=== PATIENT | female | born 1995 | race Caucasian/White ===

== ENCOUNTER 2020-05-16 10:44 | Emergency (ER) | payer OTHER, MEDICAID ==
[~2020-05-16] VITALS: Ht 175.3 cm; Wt 72.6 kg
[2020-05-16 10:45] VITALS: BP 92/75
--- NOTE | 2020-05-16 11:03 | NUR ---
Patient ambulated to bed 9. RN evaluating the patient at bedside.
--- NOTE | 2020-05-16 11:05 | NUR ---
2 CAREGIVERS AT BEDSIDE
--- NOTE | 2020-05-16 11:10 | NUR ---
24 Y/O FEMALE BIB CAREGIVER C/O ABD PAIN LLQ AND RLQ PAIN X 5 DAYS. PATIENT LIMITED ON VERBAL COMMUNICATION, PER CAREGIVERS PT SCREAMS UPON TOUCHING ABDOMEN, CANNOT LIE FLAT ON STOMACH, GRIMMACES, IS VISUALLY UNCOMFORTABLE. T GIVEN RX TYNENOL PRN WHEN PAIN BEGAN, WITH MINIMAL RELIEF. CAREGIVERS STATE PRESENCE OF NAUSEA/VOMITING AND FEVER/CHILLS. DENY CONSTIPATION, LAST BM 05/14/20. AO2, BREATHING EVEN AND UNLABORED, SKIN WARM AND DRY. BED IN LOWEST POSITION, LOCKED, X1 SIDERAIL UP. CAREGIVERS AT BEDSIDE PMH: AUTISTISM, HEMORRHOIDS NKA
--- NOTE | 2020-05-16 11:10 | NUR ---
CAREGIVERS STATE PRESENCE OF BLOOD IN STOOL
[2020-05-16] MEDS ORDERED: SIMETHICONE 40 MG/0.6 ML PO ONE (11:15)
[2020-05-16] MEDS ORDERED: ONDANSETRON 4 MG/2 ML VIAL IVP ONE (11:15)
[2020-05-16] MEDS ORDERED: FAMOTIDINE 20 MG/2 ML VIAL IVP ONE (11:15)
[2020-05-16] MEDS ORDERED: NACL 0.9% 1,000 ML IV SCH (11:15)
[2020-05-16] MEDS ORDERED: DICYCLOMINE 10 MG CAP PO ONE (11:15)
[2020-05-16] MEDS ORDERED: KETOROLAC 30 MG/ML VIAL IVP ONE (11:15)
--- NOTE | 2020-05-16 11:27 | NUR ---
Dr. Figueredo is evaluating the patient at bedside.
[2020-05-16 11:38] LABS: BASOPHILS % (AUTO) 0.3 % (0.0-2.0); EOSINOPHILS # (AUTO) 0.1 K/uL (0-0.4); EOSINOPHILS % (AUTO) 1.2 % (0.0-4.0); HEMATOCRIT 28.6 % (36-48); HEMOGLOBIN 9.1 g/dL (12.0-16.0); LYMPHOCYTES # (AUTO) 1.3 K/uL (2.5-16.5); LYMPHOCYTES % (AUTO) 22.2 % (20.5-51.1); MEAN CORPUSCULAR HEMOGLOBIN 27 pg (27-31); MEAN CORPUSCULAR HGB CONC 32 g/dL (33-37); MEAN CORPUSCULAR VOLUME 85.7 fL (80-94); MONOCYTES # (AUTO) 0.5 K/uL (0.8-1.0); MONOCYTES % (AUTO) 8.6 % (1.7-9.3); NEUTROPHILS % (AUTO) 67.7 % (42.2-75.2); PLATELET COUNT (AUTO) 204 K/uL (140-450); RED BLOOD CELL COUNT(AUTO) 3.33 MIL/uL (4.20-5.40); RED CELL DISTRIBUTION WIDTH 19.5 % (11.6-13.7); WHITE BLOOD COUNT (AUTO) 5.9 K/uL (4.8-10.8)
--- NOTE | 2020-05-16 11:43 | NUR ---
PT TAKEN TO CT VIA GURNEY. ACCOMPANIED BY 2 CAREGIVERS
[2020-05-16 11:52] LABS: ALBUMIN 2.6 g/dL (3.4-5.0); ANION GAP 12.4 (8-16); CARBON DIOXIDE 24.3 mmol/L (21-32); CREATININE 0.9 mg/dL (0.6-1.3); POTASSIUM 3.7 mmol/L (3.5-5.1); TOTAL BILIRUBIN 0.2 mg/dL (0.0-1.0)
--- NOTE | 2020-05-16 11:52 | NUR ---
Patient returned from CT scan. RN reevaluating the patient at bedside.
[2020-05-16] MEDS ORDERED: TRAM50TA3 PO (12:44)
[2020-05-16] MEDS ORDERED: SIME125T14 PO (12:45)
--- NOTE | 2020-05-16 12:56 | NUR ---
Patient discharged with v/s stable. Written and verbal after care instructions ABOUT MESENTERIC ADENITIS AND ABDOMINAL BLOATING given and explained. Patient alert, oriented and verbalized understanding of instructions. Ambulatory with by caregiver. All questions addressed prior to discharge. ID band removed. Patient advised to follow up with PMD. Rx of SIMETHICONE AND TRAMADOL given. Patient educated on indication of medication including possible reaction and side effects. Opportunity to ask questions provided and answered.
[2020-05-16 13:00] VITALS: BP 92/75
== END 2020-05-16 12:56 | disposition home or self-care (01) ==
LOC: MED 10:44
DX: K52.9 Noninfective gastroenteritis and colitis, unspecified (principal); I88.0 Nonspecific mesenteric lymphadenitis; F88 Other disorders of psychological development
CPT/HCPCS: 36415; 74176; 80053; 83690; 84703; 85025; 96361; 96374; 96375; 99284; J1885; J2405; J3490; J7030

== ENCOUNTER 2021-10-05 09:28 | Inpatient (IN) | payer OTHER, MEDICAID ==
[~2021-10-05] VITALS: Ht 177.8 cm; Wt 67.6 kg
[~2021-10-05 09:28] MED LIST: SIME125T14 PO; TRAM50TA3 PO
[2021-10-05 09:40] VITALS: BP 115/89
--- NOTE | 2021-10-05 09:48 | NUR ---
PT W/C ASSISTED TO BED 02.
--- NOTE | 2021-10-05 09:50 | NUR ---
WHEELCHAIRED INTO ED ACCOMPANIED BY CAREGIVER C/O B/L HIP PAIN, MORE PROMINENT ON RIGHT SIDE S/P FALL D/T BEHAVIORAL. DENIES TRAUMA TO HEAD.
--- NOTE | 2021-10-05 11:01 | NUR ---
BLOOD COLLECTED. UNABLE TO PROVIDE URINE AT THIS TIME. WILL TRY AGAIN LATER
[2021-10-05 11:03] LABS: BASOPHILS % (AUTO) 0.2 % (0.0-2.0); EOSINOPHILS % (AUTO) 0.3 % (0.0-4.0); HEMATOCRIT 28.1 % (36-48); HEMOGLOBIN 9.1 g/dL (12.0-16.0); LYMPHOCYTES % (AUTO) 6.9 % (20.5-51.1); MEAN CORPUSCULAR HEMOGLOBIN 28 pg (27-31); MEAN CORPUSCULAR HGB CONC 32 g/dL (33-37); MEAN CORPUSCULAR VOLUME 85.2 fL (80-94); MONOCYTES # (AUTO) 2.4 K/uL (0.8-1.0); NEUTROPHILS # (AUTO) 10.8 K/uL (1.8-7.7); NEUTROPHILS % (AUTO) 75.6 % (42.2-75.2); PLATELET COUNT (AUTO) 211 K/uL (140-450); RED BLOOD CELL COUNT(AUTO) 3.29 MIL/uL (4.20-5.40); RED CELL DISTRIBUTION WIDTH 18.9 % (11.6-13.7); WHITE BLOOD COUNT (AUTO) 14.3 K/uL (4.8-10.8)
[2021-10-05] MEDS ORDERED: NACL 0.9% 1,000 ML IV ONE (11:05)
--- NOTE | 2021-10-05 11:20 | NUR ---
XR AT BEDSIDE
[2021-10-05] MEDS ORDERED: MIDAZOLAM 2 MG/2 ML VIAL ONE (11:22)
[2021-10-05] MEDS ORDERED: diphenhydrAMINE 50 MG/ML VIAL ONE (11:23)
[2021-10-05] MEDS ORDERED: MIDAZOLAM 5 MG/5 ML VIAL IV ONE (11:25)
--- NOTE | 2021-10-05 11:30 | NUR ---
PT WENT FOR CT ACCOMPANIED BY RN WITH MONITOR AND O2 NC
[2021-10-05 11:31] LABS: APPEARANCE,URINE CLEAR (CLEAR); BILIRUBIN,URINE NEGATIVE (NEGATIVE); BLOOD, URINE NEGATIVE (NEGATIVE); COLOR,URINE YELLOW (YELLOW); LEUKOCYTE ESTERASE ,URINE NEGATIVE (NEGATIVE); NITRITE, URINE NEGATIVE (NEGATIVE); PH,URINE 7.5 (5.0-9.0); UGLUCOSE NEGATIVE (NEGATIVE)
[2021-10-05 11:40] LABS: BARBITURATE, URINE NEGATIVE ng/ml (NEG <=200); BENZODIAZEPINE, URINE POSITIVE ng/mL (NEG <=200)
[2021-10-05 11:41] LABS: CANNABINOID, URINE NEGATIVE ng/mL (NEG <=50); COCAINE, URINE NEGATIVE ng/mL (NEG <=300); OPIATE, URINE NEGATIVE ng/mL (NEG <=2000); PHENCYCLIDINE SCREEN,URINE NEGATIVE ng/mL (NEG <=25)
--- NOTE | 2021-10-05 11:41 | NUR ---
[facility] RETURNED PATIENT WAS CALM DURING CT.
--- NOTE | 2021-10-05 11:42 | NUR ---
PT BACK FROM CT
[2021-10-05 11:47] LABS: ACETAMINOPHEN < 0.5 ug/ml (10-30); ALBUMIN 2.3 g/dL (3.4-5.0); ANION GAP 15.9 (8-16); ASPARTATE AMINOTRANSFERASE 99 U/L (15-37); CARBON DIOXIDE 21.8 mmol/L (21-32); CHLORIDE 103 mmol/L (98-107); CREATININE 0.7 mg/dL (0.6-1.3); GFR ARICAN-AMERICAN 131 mL/min (>90); GLUCOSE 109 mg/dL (74-106); POTASSIUM 3.7 mmol/L (3.5-5.1); SODIUM SERUM 137 mmol/L (136-145); TOTAL BILIRUBIN 0.3 mg/dL (0.0-1.0); UREA NITROGEN, BLOOD 7 mg/dL (7-18)
[2021-10-05 12:05] LABS: SALICYLATE < 2.8 mg/dL (2.8-20.0)
--- NOTE | 2021-10-05 13:09 | NUR ---
CONTACT INFO FOR PT'S MOM [phone]
--- NOTE | 2021-10-05 13:43 | NUR ---
SPOKE WITH THONY THE TAP PULLER, WILL CALL BACK WITH CONFIRMATION ON ADMISSION
[2021-10-05] MEDS ORDERED: TEMA30CA23 PO (13:53)
[2021-10-05] MEDS ORDERED: DOCU-299 PO (13:53)
[2021-10-05] MEDS ORDERED: [UNRECOGNIZED DRUG - CODE] PO (13:53)
[2021-10-05] MEDS ORDERED: LORA-476 PO (13:53)
[2021-10-05] MEDS ORDERED: OLAN20TA1 PO (13:53)
[2021-10-05] MEDS ORDERED: DIVA500T1 PO (13:53)
[2021-10-05] MEDS ORDERED: ZIPR40CA39 PO (13:53)
[2021-10-05] MEDS ORDERED: TOPI50TA PO (13:53)
[2021-10-05] MEDS ORDERED: DIPH50CA69 PO (13:53)
[2021-10-05] MEDS ORDERED: [UNRECOGNIZED DRUG - CODE] PO (13:53)
[2021-10-05] MEDS ORDERED: FAMO-90 PO (13:53)
[2021-10-05] MEDS ORDERED: cefTRIAXone 1,000 MG VIAL ONE (15:06)
--- NOTE | 2021-10-05 15:47 | NUR ---
PT MOVED TO ER BED 4 FOR CLOSER OBSERVATION
[2021-10-05] MEDS ORDERED: ACETAMINOPHEN 325 MG TAB PO PRN (15:55)
[2021-10-05] MEDS ORDERED: POTASSIUM CHLORIDE 10 MEQ TABER PO PRN (15:55)
[2021-10-05] MEDS ORDERED: MAG SULF 2000 MG/WATER PREMIX 50 ML IV PRN (15:55)
[2021-10-05] MEDS ORDERED: KCL 20 MEQ/WATER INJ PREMIX 200 ML IV PRN (15:55)
[2021-10-05] MEDS ORDERED: MAGNESIUM OXIDE 400 MG TAB PO PRN (15:55)
[2021-10-05] MEDS ORDERED: MORPHINE SULFATE 4 MG/ML SYR IVP PRN (15:55)
[2021-10-05] MEDS ORDERED: HYDROcodone/APAP 5/325 MG 1 TAB TAB PO PRN (15:55)
[2021-10-05] MEDS ORDERED: ONDANSETRON 4 MG/2 ML VIAL IVP PRN (15:55)
[2021-10-05] MEDS ORDERED: LEVOFLOXACIN 500 MG/D5W PREMIX 100 ML IV ONE (16:56)
[2021-10-05] MEDS: LEVOFLOXACIN 500 MG/D5W PREMIX 100 ML IV SCH (16:59)
[2021-10-05] MEDS: NACL 0.9% 1,000 ML IV SCH (17:00)
--- NOTE | 2021-10-05 19:30 | NUR ---
REEIVED IN BED 4 WITH MOTHER AT BEDSIDE. IS RESTING QUIETLY AT PRESENT. RESPIRATIONS ARE REGULAR AND UNLABORED
--- NOTE | 2021-10-05 20:00 | NUR ---
PT HITS SELF IN HEAD. PROTECTIVE HELMET IN PLACE. DIAPER AND LINENS CHANGED. POSITIONED FOR COMFORT. MOM REMAINS AT BEDSIDE
--- NOTE | 2021-10-05 22:00 | NUR ---
REPOSITIONED FOR COMFORT
--- NOTE | 2021-10-06 | NUR ---
RESTING QUIETLY AT PRESENT. RESPIRATIONS ARE REGULAR AND UNLABORED
[2021-10-06] MEDS: metroNIDAZOLE 500 MG/NS PREMIX 100 ML IV SCH ×4 (03:10→21:10)
--- NOTE | 2021-10-06 04:00 | NUR ---
AWAKE, IS RESTLESS. REPOSITIONED FOR COMFORT
--- NOTE | 2021-10-06 06:15 | NUR ---
PT PULLED IV OUT. LINENS CHANGED
[2021-10-06] MEDS: NACL 0.9% 1,000 ML IV SCH ×2 (06:42→17:24)
--- NOTE | 2021-10-06 07:30 | NUR ---
REPORT RECEIVED FROM RYAN GARCIA, TRANSFER OF CARE AT THIS TIME. RECEIVED PT IN BED, SEZIURE PADS IN PLACE, HELMET IN PLACE, BED LOCKED AND LOWEST POSITION,NO IV ACCESS, PT TACHYCARDIC AT 125, ON MUSIC CATALOGUER
[2021-10-06 07:39] LABS: BASOPHILS % (AUTO) 0.3 % (0.0-2.0); EOSINOPHILS % (AUTO) 0.5 % (0.0-4.0); HEMATOCRIT 28.8 % (36-48); HEMOGLOBIN 9.2 g/dL (12.0-16.0); LYMPHOCYTES % (AUTO) 11.2 % (20.5-51.1); MEAN CORPUSCULAR HEMOGLOBIN 28 pg (27-31); MEAN CORPUSCULAR HGB CONC 32 g/dL (33-37); MEAN CORPUSCULAR VOLUME 87.5 fL (80-94); MONOCYTES # (AUTO) 1.2 K/uL (0.8-1.0); MONOCYTES % (AUTO) 12.9 % (1.7-9.3); NEUTROPHILS # (AUTO) 6.9 K/uL (1.8-7.7); NEUTROPHILS % (AUTO) 75.1 % (42.2-75.2); PLATELET COUNT (AUTO) 199 K/uL (140-450); RED BLOOD CELL COUNT(AUTO) 3.29 MIL/uL (4.20-5.40); RED CELL DISTRIBUTION WIDTH 19.2 % (11.6-13.7); WHITE BLOOD COUNT (AUTO) 9.2 K/uL (4.8-10.8)
[2021-10-06 08:28] LABS: ALBUMIN 2.1 g/dL (3.4-5.0); ANION GAP 16.2 (8-16); CARBON DIOXIDE 21.2 mmol/L (21-32); CREATININE 0.6 mg/dL (0.6-1.3); MAGNESIUM 1.7 mg/dL (1.8-2.4); POTASSIUM 3.4 mmol/L (3.5-5.1); TOTAL BILIRUBIN 0.4 mg/dL (0.0-1.0)
--- NOTE | 2021-10-06 08:58 | NUR ---
SPOKE TO DR [facility] REGARDING PT TACHYCARDIA AND RESTLESSNESS,RECEIVED VERBAL ORDER FOR SOFT RESTRAINTS FOR WRISTS AND ONE TIME DOSE OF ATIVAN IV 1MG, MADE AWARE OF RESTRAINT PROTOCOL
[2021-10-06] MEDS ORDERED: LORazepam 2 MG/ML VIAL IM/IVP PRN (09:00)
--- NOTE | 2021-10-06 10:14 | NUR ---
PT SHEETS, GOWN AND DIAPER CHANGED, KEPT CLEAN AND DRY
[2021-10-06] MEDS ORDERED: traMADol 50 MG TAB PO SCH (10:35)
[2021-10-06] MEDS: diazePAM 5 MG TAB PO PRN (12:49)
--- NOTE | 2021-10-06 13:30 | NUR ---
PT MOTHER LEFT BEDSIDE, PT NOTED TO BE HITTING HER HEAD WITH HELMET
--- NOTE | 2021-10-06 13:40 | NUR ---
PILLOW REPLACED, IV LINE HIDDEN TO PREVENT PT PULLING OUT LINE
--- NOTE | 2021-10-06 13:57 | NUR ---
DR ROSALES AT BEDSIDE FOR EVAL
--- NOTE | 2021-10-06 14:00 | NUR ---
PT ATTEMPTING TO PULL ON LINES, SCREAMING FOR MOTHER/FATHER, REORIENTED THAT MOTHER AND FATHER ARE NOT AT PT SIDE
--- NOTE | 2021-10-06 14:00 | NUR ---
DR ROSALES INFORMED THAT SOFT RESTRAINTS WERE NOT USED EARLIER BECAUSE PTS MOTHER WAS AT BEDSIDE AND WAS ABLE TO CALM HER DOWN. DR ROSALES ALSO NOTIFIED OF PATIENTS MEDICATION REGIMEN AT HOME SO IT CAN BE UPDATED. PATIENTS MOTHER WAS REQUESTING/ADVISING US TO RESTRAIN THE PATIENT WHEN SHE LEAVES SHE CAN BEGAN TO HIT HERSELF. DR ROSALES AT BEDSIDE, RECEIVED VERBAL ORDER AGAIN OF SOFT RESTRAINTS. ALSO INFORMED HIM OF PATIENTS ELEVATED HEART RATE AND ELEVATED RESPIRATIONS, NO NEW ORDERS RECEIVED.
--- NOTE | 2021-10-06 14:17 | NUR ---
PATIENT HAS BEEN SCREENED AND CATEGORIZED LOW NUTRITION RISK. PATIENT WILL BE SEEN WITHIN 7 DAYS OF ADMISSION. 10/12/[address]
--- NOTE | 2021-10-06 17:29 | NUR ---
PT FATHER AT BEDSIDE
[2021-10-06] MEDS: LEVOFLOXACIN 500 MG/D5W PREMIX 100 ML IV SCH (18:07)
--- NOTE | 2021-10-06 19:52 | NUR ---
Pt report given to EBONY ALVAREZ. Transfer of care at this time.
--- NOTE | 2021-10-06 20:20 | NUR ---
Patient will be admitted to [facility]. Admited to TELE. Will go to [id number]. Belongings list completed. Report to
[2021-10-06 20:30] VITALS: BP 121/85
--- NOTE | 2021-10-06 20:30 | NUR ---
RECEIVED REPORT FROM ER NURSE. PATIENT IS AWAKE, ALERT AND ORIENTED TO HER NAME. RE-ORIENTATION DONE TO TIME, PLACE AND DATE, RN NAME PROVIDED. NO S/X OF PAIN NOR DISCOMFORT. NO ACUTE RESPIRATORY DISTRESS NOTED. SKIN WARM AND DRY TO TOUCH. BED IN THE LOWEST AND LOCKED POSITION FOR SAFETY, CALL LIGHT WITHIN REACH. INCONTINENT OF URINE, PERINEAL CARE RENDERED.BILATERAL SOFT WRIST RESTRAINTS ON FOR SAFETY, CHECKED FOR CIRCULATION, NO SKIN INJURY, IVF INFUSING WELL ORDERED.
--- NOTE | 2021-10-06 21:00 | NUR ---
DUE MEDICATIONS GIVEN ORDERED, TOLERATED WELL, NO COUGHING NOTED. PROVIDED WATER.
[2021-10-06] MEDS: TEMAZEPAM 15 MG CAP PO SCH (21:10)
[2021-10-06] MEDS: DOCUSATE SODIUM 100 MG GELCAP PO SCH (21:10)
[2021-10-06] MEDS: DIVALPROEX 500 MG TABER PO SCH (21:10)
[2021-10-06] MEDS: TOPIRAMATE 100 MG TAB PO SCH (21:10)
--- NOTE | 2021-10-06 22:05 | NUR ---
BASIM, MOTHER CALLED, UPDATED ON PT. MOTHER PROVIDED INFO ON COVID VACCINATION AND MEDICAL HISTORY. Addendum: 10/07/21 at 0229 by Mi Simmons RN BASIM'S CELLPHONE NUMBER
[2021-10-07] VITALS: BP 119/79
--- NOTE | 2021-10-07 | NUR ---
RESTING COMFORTABLY IN BED. IVF INFUSING WELL ORDERED. CALL LIGHT IN REACH.
[2021-10-07 04:00] VITALS: BP 121/85
[2021-10-07] MEDS: NACL 0.9% 1,000 ML IV SCH ×2 (04:02→18:15)
[2021-10-07] MEDS: metroNIDAZOLE 500 MG/NS PREMIX 100 ML IV SCH ×3 (04:02→21:08)
[2021-10-07] MEDS: diazePAM 5 MG TAB PO PRN (04:11)
--- NOTE | 2021-10-07 04:11 | NUR ---
PATIENT RESTLESS AND SCREAMING, PRN MEDICATION GIVEN ORDERED. PLS REFER TO EMAR.
--- NOTE | 2021-10-07 05:22 | NUR ---
PATIENT NOW CALM IN BED. SAFETY PRECAUTION IN PLACE. BED ALARM ON. CALL LIGHT IN REACH.
--- NOTE | 2021-10-07 06:05 | NUR ---
AM CARE RENDERED. ALL NEEDS ATTENDED TO. NO DISTRESS NOTED. SAFETY PRECAUTIONS MAINTAINED DURING THE SHIFT, CALL LIGHT REMAINED WITHIN REACH.
--- NOTE | 2021-10-07 07:15 | NUR ---
Received pt awake alert and oriented x2 to person and place. Pt on room air breathing even and unlabored. On clear liquid diet. Incontinent bowel and bladder. Peripheral IV 24 gauge on right hand intact and patent infusing NS @80ml/hr. Bilat soft restraints in place. Safety precautions in place.
[2021-10-07 07:33] LABS: BASOPHILS % (AUTO) 0.2 % (0.0-2.0); EOSINOPHILS # (AUTO) 0.1 K/uL (0-0.4); EOSINOPHILS % (AUTO) 1.4 % (0.0-4.0); HEMATOCRIT 27.9 % (36-48); HEMOGLOBIN 8.9 g/dL (12.0-16.0); LYMPHOCYTES # (AUTO) 1.1 K/uL (2.5-16.5); LYMPHOCYTES % (AUTO) 20.5 % (20.5-51.1); MEAN CORPUSCULAR HEMOGLOBIN 28 pg (27-31); MEAN CORPUSCULAR HGB CONC 32 g/dL (33-37); MEAN CORPUSCULAR VOLUME 87.4 fL (80-94); MONOCYTES # (AUTO) 0.8 K/uL (0.8-1.0); MONOCYTES % (AUTO) 14.9 % (1.7-9.3); NEUTROPHILS # (AUTO) 3.5 K/uL (1.8-7.7); PLATELET COUNT (AUTO) 227 K/uL (140-450); RED BLOOD CELL COUNT(AUTO) 3.19 MIL/uL (4.20-5.40); RED CELL DISTRIBUTION WIDTH 19.5 % (11.6-13.7); WHITE BLOOD COUNT (AUTO) 5.6 K/uL (4.8-10.8)
[2021-10-07 07:58] LABS: ANION GAP 13.4 (8-16); CARBON DIOXIDE 22.8 mmol/L (21-32); CREATININE 0.6 mg/dL (0.6-1.3); MAGNESIUM 1.6 mg/dL (1.8-2.4); POTASSIUM 3.2 mmol/L (3.5-5.1); TOTAL BILIRUBIN 0.4 mg/dL (0.0-1.0)
[2021-10-07 08:00] VITALS: BP 131/85
[2021-10-07] MEDS: FAMOTIDINE 20 MG TAB PO SCH (08:48)
[2021-10-07] MEDS: TOPIRAMATE 100 MG TAB PO SCH ×2 (08:48→21:09)
[2021-10-07] MEDS: DIVALPROEX 500 MG TABER PO SCH ×2 (08:48→21:08)
[2021-10-07] MEDS: DOCUSATE SODIUM 100 MG GELCAP PO SCH ×2 (08:49→21:08)
[2021-10-07 12:00] VITALS: BP 129/85
--- NOTE | 2021-10-07 14:40 | NUR ---
Pt c/o pain. Please see pain assessment.
--- NOTE | 2021-10-07 15:13 | NUR ---
Seen and examined by Dr. Chowdhury. New order received.
[2021-10-07 16:00] VITALS: BP 142/88
--- NOTE | 2021-10-07 16:35 | NUR ---
Endorsed to [facility] for continuity of care.
--- NOTE | 2021-10-07 16:40 | NUR ---
SBAR REPORT RECEIVED FROM MIKA GARCIA. ALL CARES ASSUMED.
[2021-10-07] MEDS: LEVOFLOXACIN 500 MG/D5W PREMIX 100 ML IV SCH (18:16)
--- NOTE | 2021-10-07 19:16 | NUR ---
SBAR REPORT GIVEN TO TOBIAS GARCIA, ALL CARES ENDORSED.
--- NOTE | 2021-10-07 19:20 | NUR ---
REPORT GIVEN BY AM RN. PATIENT IS AWAKE, ALERT AND ORIENTED X 2. RE-ORIENTATION TO TIME, PLACE AND DATE. FAMILY MEMBER AT THE BEDSIDE. DENIES PAIN AT THIS TIME. NO ACUTE RESPIRATORY DISTRESS NOTED. SKIN WARM AND DRY TO TOUCH. BED IN THE LOWEST AND LOCKED POSITION FOR SAFETY, CALL LIGHT WITHIN REACH.
[2021-10-07 20:00] VITALS: BP 128/81
[2021-10-07] MEDS: TEMAZEPAM 15 MG CAP PO SCH (21:08)
--- NOTE | 2021-10-07 22:00 | NUR ---
IV SITE REDNESS NOTED, REMOVED WITH INTACT CANNULA AND INSERTED IV IN THE RIGHT WRIST #22 X1 ATTEMPT. PATIENT INCONTINENT OF URINE, PERINEAL CARE RENDERED, PULLED UP AND REPOSITIONED FOR COMFORT.
[2021-10-08] VITALS: BP 110/93
--- NOTE | 2021-10-08 00:15 | NUR ---
ROUNDING DONE. PATIENT ASLEEP. BREATHING EVEN AND UNLABORED. CALL LIGHT IN REACH.
--- NOTE | 2021-10-08 02:53 | NUR ---
INCONTINENT OF URINE, PERINEAL CARE RENDERED. MADE COMFORTABLE IN BED. CALL LIGHT IN REACH.
[2021-10-08 04:00] VITALS: BP 117/80
[2021-10-08] MEDS: metroNIDAZOLE 500 MG/NS PREMIX 100 ML IV SCH (04:05)
--- NOTE | 2021-10-08 05:11 | NUR ---
AM CARE RENDERED. MADE COMFORTABLE IN BED. SAFETY PRECAUTION IN PLACE.
[2021-10-08] MEDS: NACL 0.9% 1,000 ML IV SCH (05:16)
--- NOTE | 2021-10-08 06:28 | NUR ---
PATIENT IS ASLEEP. ALL NEEDS ATTENDED TO. NO DISTRESS NOTED. SAFETY PRECAUTIONS MAINTAINED DURING THE SHIFT, CALL LIGHT REMAINED WITHIN REACH.
[2021-10-08 06:47] LABS: BASOPHILS % (AUTO) 0.5 % (0.0-2.0); EOSINOPHILS # (AUTO) 0.1 K/uL (0-0.4); EOSINOPHILS % (AUTO) 2.3 % (0.0-4.0); HEMATOCRIT 27.2 % (36-48); HEMOGLOBIN 8.7 g/dL (12.0-16.0); LYMPHOCYTES # (AUTO) 1.2 K/uL (2.5-16.5); LYMPHOCYTES % (AUTO) 22.3 % (20.5-51.1); MEAN CORPUSCULAR HEMOGLOBIN 28 pg (27-31); MEAN CORPUSCULAR HGB CONC 32 g/dL (33-37); MEAN CORPUSCULAR VOLUME 88.4 fL (80-94); MONOCYTES # (AUTO) 0.7 K/uL (0.8-1.0); NEUTROPHILS # (AUTO) 3.1 K/uL (1.8-7.7); NEUTROPHILS % (AUTO) 60.9 % (42.2-75.2); PLATELET COUNT (AUTO) 231 K/uL (140-450); RED BLOOD CELL COUNT(AUTO) 3.07 MIL/uL (4.20-5.40); RED CELL DISTRIBUTION WIDTH 19.4 % (11.6-13.7); WHITE BLOOD COUNT (AUTO) 5.2 K/uL (4.8-10.8)
--- NOTE | 2021-10-08 07:15 | NUR ---
RECEIVED BEDSIDE REPORT FROM TOBIAS ARGUELLO RN FOR CONTINUITY OF CARE. PT LYING IN THE BED, AAOX2, SR/ST ON TELEMONITOR. 22G TO RW INFUSING NS AT 80 ML/H. ON RM AIR. INCONTINENT OF BOWEL AND BLADDER. BRUISING TO BLE. BL SOFT W RESTRAINTS IN PLACE. NO S/S INJURY. SAFETY PRECAUTIONS MET. STANDARD PRECAUTIONS IN PLACE. INITIAL ASSESSMENT COMPLETE, WILL CONTINUE TO MONITOR.
[2021-10-08 07:19] LABS: ANION GAP 13.6 (8-16); ASPARTATE AMINOTRANSFERASE 29 U/L (15-37); CHLORIDE 109 mmol/L (98-107); CREATININE 0.6 mg/dL (0.6-1.3); GFR ARICAN-AMERICAN 157 mL/min (>90); GLUCOSE 100 mg/dL (74-106); MAGNESIUM 1.5 mg/dL (1.8-2.4); POTASSIUM 3.6 mmol/L (3.5-5.1); SODIUM SERUM 141 mmol/L (136-145); TOTAL BILIRUBIN 0.4 mg/dL (0.0-1.0); UREA NITROGEN, BLOOD 4 mg/dL (7-18)
--- NOTE | 2021-10-08 07:36 | NUR ---
PT MOTHER FELI CALLED, UPDATED REGARDING PT CONDITION, EXPECTING DC TODAY. SHE SAID SHE WILL COME VISIT SOON.
[2021-10-08 08:00] VITALS: BP 132/92
[2021-10-08] MEDS: FAMOTIDINE 20 MG TAB PO SCH (08:21)
[2021-10-08] MEDS: DOCUSATE SODIUM 100 MG GELCAP PO SCH (08:21)
[2021-10-08] MEDS: TOPIRAMATE 100 MG TAB PO SCH (08:21)
[2021-10-08] MEDS: DIVALPROEX 500 MG TABER PO SCH (08:21)
--- NOTE | 2021-10-08 09:25 | NUR ---
PT MOTHER AT BEDSIDE, PT SUPPOSEDLY HAD NOSEBLEED, MOTHER ALREADY CLEANED UP. EXTREMELY FRUSTRATED ABOUT PT HAVING NOSEBLEED, WANTING TO TAKE HER HOME HORACIO. THERE IS NO DISCHARGE ORDER AT THIS TIME. EDUCATED BASIM ABOUT DC ORDERS AND DR OCONNELL/DISPOSITION AND MED REC. VS AMA FORM TO LEAVE HORACIO W/O DC ORDER. SHE REQUEST TO PAGE . WILL PAGE TO ASSESS FOR DC ORDER.
--- NOTE | 2021-10-08 09:33 | NUR ---
PAGED DR ROSALES FOR DC ORDERS. NOTIFIED BASIM PT MOM AT BEDSIDE
--- NOTE | 2021-10-08 09:56 | NUR ---
MAGNESIUM 1.5, NOT REPLACED VIA EMAR YET. EDUCATED PT MOTHER AT BEDSIDE ABOUT MAGNESIUM, ELECTROLYTE IMBALANCE, AND PARAMETERS WITH MAG RIDER VS MAG OX. PT MOTHER REFUSES IV MED, WANTS IV REMOVED, AND PO MAG OX INSTEAD. REQUESTED TO PAGE DR STEWART BECAUSE NO CALL BACK. PAGED DR ROSALES AGAIN.
--- NOTE | 2021-10-08 10:04 | NUR ---
CALL BACK FROM DR ROSALES. ENDORSED THAT PT STABLE, TOLERATING SOLID DIET, NO C/O ABD PAIN. VSS. SAID HE WILL SET UP DC AND DISPOSITION IN THE NEXT FEW MINUTES OR SO. PT MOTHER AWARE, STILL AT BEDSIDE.
[2021-10-08] MEDS ORDERED: LEVO-481 PO ×2 (10:26→13:37)
[2021-10-08] MEDS ORDERED: METR-435 PO ×2 (10:29→13:38)
[2021-10-08 11:03] VITALS: BP 132/92
--- NOTE | 2021-10-08 11:40 | NUR ---
PT CLEANED AND REPOSITIONED. APPLIED PT DIAPER FROM HOME PER MOTHER AT BEDSIDE. MOTHER SIGNED DC PAPERWORK. PROVIDED DC TEACHING, CONFIRMED PREF PHARMACY AND DC MEDS. REMOVED PT ID BAND AND RW 22G REMOVED. PT TOLERATED WELL. VSS, PT STABLE, DENIES PAIN, FLACC 0. WHEELED PT TO LOBBY VIA WC AND PT MOTHER ASSISTED PT INTO PRIVATE VEHICLE.
--- NOTE | 2021-10-08 12:30 | NUR ---
PHONE CALL FROM PT MOTHER BASIM, NOTIFIED THAT MEDS WERE SENT TO WRONG PHARM[facility]Y. UPDATED PREFERRED PHARMACY AND NOTIFIED DR ROSALES.
--- NOTE | 2021-10-08 13:40 | NUR ---
DR BOBBY GLYNN, ORDERED MEDS FOR UPDATED PHARMACY [facility] [address] [place]. NOTIFIED PT MOTHER BASIM.
== END 2021-10-08 11:40 | disposition home or self-care (01) | DRG 872 ==
LOC: MED 09:28 → MTU 15:52 → MED 15:52 → MTU 18:34
PROVIDERS: ADMIT Hospitalist; ATTEND Hospitalist
DX: A41.9 Sepsis, unspecified organism (principal); R74.01 Elevation of levels of liver transaminase levels; K52.9 Noninfective gastroenteritis and colitis, unspecified; Z20.822 Contact with and (suspected) exposure to COVID-19
CPT/HCPCS: 36415; 70450; 70486; 71045; 80053; 80305; 81003; 81025; 83605; 83735; 85025; 87040; 87081; 93005; 96365; 96367; 99291; G0480; G0482; J0696; J1200; J1956; J2250; J2270; J3490; Q0163

== ENCOUNTER 2022-06-01 08:00 | Emergency (ER) | payer OTHER, MEDICAID ==
[~2022-06-01] VITALS: Ht 175.3 cm; Wt 60.8 kg
[~2022-06-01 08:00] MED LIST changes: +DIPH50CA69 PO; +DIVA500T1 PO; +DOCU-299 PO; +FAMO-90 PO; +LEVO-481 PO; +LORA-476 PO; +METR-435 PO; +OLAN20TA1 PO; +TEMA30CA23 PO; +TOPI50TA PO; +ZIPR40CA39 PO; +[UNRECOGNIZED DRUG - CODE] PO; +[UNRECOGNIZED DRUG - CODE] PO
[2022-06-01 08:28] VITALS: BP 108/79
[2022-06-01] MEDS ORDERED: LIDOCAINE 1% 500 MG/ 50 ML VIAL INJ ONE (09:00)
[2022-06-01] MEDS ORDERED: LIDOCAINE MPF 1% 5 ML ONE (09:04)
--- NOTE | 2022-06-01 09:04 | NUR ---
26 Y/O F BIB CAREGIVER C/C LACERATION TO FOREHEAD S/P HITTING HEAD IN SHOWER DENIES LOC. PMH: AUTISM
--- NOTE | 2022-06-01 09:06 | NUR ---
DR ZAMUDIO AT BEDSIDE.
--- NOTE | 2022-06-01 09:40 | NUR ---
PT WOUND TO FOREHEAD IRRIGATED WITH BETADINE AND NORMAL SALINE. NON ADHERENT APPLIED.
--- NOTE | 2022-06-01 09:44 | NUR ---
Patient discharged with v/s stable. Written and verbal after care instructions given and explained. Patient verbalized understanding. Ambulatory with by caregiver. All questions addressed prior to discharge. Advised to follow up with PMD.
--- NOTE | 2022-06-01 09:44 | NUR ---
The patient's care was reviewed and supervised by Stephanie Houser RN.
== END 2022-06-01 09:42 | disposition home or self-care (01) ==
LOC: MED 08:00
DX: S01.81XA Laceration without foreign body of other part of head, initial encounter (principal); Z79.891 Long term (current) use of opiate analgesic; Z79.899 Other long term (current) drug therapy; Z79.2 Long term (current) use of antibiotics; W22.8XXA Striking against or struck by other objects, initial encounter; Y93.E1 Activity, personal bathing and showering; Y92.002 Bathroom of unspecified non-institutional (private) residence as the place of occurrence of the external cause; Y99.8 Other external cause status
CPT/HCPCS: 12013; 90471; 90715; 99283; J2001

== ENCOUNTER 2022-08-03 08:22 | Emergency (ER) | payer OTHER, MEDICAID ==
[~2022-08-03] VITALS: Ht 160 cm; Wt 45.4 kg
[2022-08-03 08:44] VITALS: BP 121/62
--- NOTE | 2022-08-03 08:53 | NUR ---
bib caregiver for laceration to forehead after banging head on wall this am. hx autism. combative @ times per caregiver. bleeding controlled. no ko,n,v. resp even and nonlabored. caregiver @ bedside
[2022-08-03] MEDS ORDERED: LIDOCAINE/EPI 2% 1:100000 20 ML VIAL INJ ONE (09:00)
[2022-08-03] MEDS ORDERED: LIDOCAINE/EPI MPF 1%1:200000 30 ML VIAL INJ ONE (09:01)
--- NOTE | 2022-08-03 09:11 | NUR ---
Malinda ash in [facility] - 08/03/22 at 1119 by CARMEN suture setup bedside. wound irrigated with betadine X ns. non adherent applied with rollergauze to keep in place
--- NOTE | 2022-08-03 09:11 | NUR ---
suture setup bedside. wound irrigated with betadine X ns.
[2022-08-03] MEDS ORDERED: ACETAMINOPHEN EXTRA STRENGTH 500 MG TAB PO ONE (09:45)
[2022-08-03] MEDS ORDERED: LORazepam 2 MG/ML VIAL IM ONE (09:45)
--- NOTE | 2022-08-03 09:55 | NUR ---
medicated per md order
[2022-08-03] MEDS ORDERED: NON ADHERENT DRESSING TP SCH (10:25)
[2022-08-03] MEDS ORDERED: BACITRACIN OINT 500 UNITS/GM PKT TP ONE (10:25)
--- NOTE | 2022-08-03 10:54 | NUR ---
er md @ bedside for lac repair. pt calm @ this time. caregiver @ bedside
[2022-08-03] MEDS ORDERED: BACO TP (11:08)
[2022-08-03 11:16] VITALS: BP 112/74
--- NOTE | 2022-08-03 11:16 | NUR ---
Patient discharged with v/s stable. Written and verbal after care instructions given and explained to caregiver. Patient alert and caregiver verbalized understanding of instructions. Ambulatory with steady gait. All questions addressed prior to discharge. ID band removed. Patient advised to follow up with PMD. Rx of given. Patient educated on indication of medication including possible reaction and side effects. Opportunity to ask questions provided and answered.
== END 2022-08-03 11:15 | disposition home or self-care (01) ==
LOC: MED 08:22
DX: S01.81XA Laceration without foreign body of other part of head, initial encounter (principal); F84.0 Autistic disorder; W22.8XXA Striking against or struck by other objects, initial encounter; Y93.89 Activity, other specified; Y92.89 Other specified places as the place of occurrence of the external cause; Y99.8 Other external cause status
CPT/HCPCS: 12013; 96372; 99283; J2001; J2060; 99284

== ENCOUNTER 2022-09-27 10:28 | Emergency (ER) | payer OTHER, MEDICAID ==
[~2022-09-27] VITALS: Ht 177.8 cm; Wt 54.4 kg
[~2022-09-27 10:28] MED LIST changes: +BACO TP
[2022-09-27 10:55] VITALS: BP 85/74; PULSE 130; RESP 20; TEMP 97.1; O2SAT 91
--- NOTE | 2022-09-27 12:16 | NUR ---
PT IN X-RAY
[2022-09-27] MEDS ORDERED: DICL100G5 TP (12:43)
[2022-09-27 12:48] VITALS: BP 99/74; PULSE 81; RESP 17
--- NOTE | 2022-09-27 12:49 | NUR ---
PT DC HOME WITH CAREGIVERS. PT STABLE ON DC.
[2022-09-28 06:59] VITALS: O2SAT 97
== END 2022-09-27 12:49 | disposition home or self-care (01) ==
LOC: MED 10:28
DX: S70.02XA Contusion of left hip, initial encounter (principal); S80.02XA Contusion of left knee, initial encounter; F84.0 Autistic disorder; Z79.899 Other long term (current) drug therapy; W18.30XA Fall on same level, unspecified, initial encounter; Y93.89 Activity, other specified; Y92.89 Other specified places as the place of occurrence of the external cause; Y99.8 Other external cause status
CPT/HCPCS: 73502; 73562; 99284

== ENCOUNTER 2022-11-19 10:06 | Emergency (ER) | payer OTHER, MEDICAID ==
[~2022-11-19] VITALS: Ht 172.7 cm; Wt 72.6 kg
[~2022-11-19 10:06] MED LIST changes: +DICL100G32 TP
[2022-11-19 10:28] VITALS: BP 140/92; PULSE 84; RESP 22; TEMP 100.3
[2022-11-19 13:23] VITALS: BP 117/82; PULSE 117; RESP 20; TEMP 37.00296; O2SAT 100
== END 2022-11-19 13:23 | disposition home or self-care (01) ==
LOC: MED 10:06
DX: S52.591A Other fractures of lower end of right radius, initial encounter for closed fracture (principal); S52.611A Displaced fracture of right ulna styloid process, initial encounter for closed fracture; F84.0 Autistic disorder; Z79.899 Other long term (current) drug therapy; W19.XXXA Unspecified fall, initial encounter; Y93.89 Activity, other specified; Y92.89 Other specified places as the place of occurrence of the external cause; Y99.8 Other external cause status
CPT/HCPCS: 73080; 73090; 73110; 73130; 99284

== ENCOUNTER 2022-12-06 10:46 | Emergency (ER) | payer OTHER, MEDICAID ==
[~2022-12-06] VITALS: Ht 177.8 cm; Wt 53.5 kg
[2022-12-06 11:14] VITALS: BP 131/67; PULSE 126; RESP 20; TEMP 98.7; O2SAT 98
[2022-12-06 12:20] LABS: BASOPHILS % (AUTO) 0.2 % (0.0-2.0); EOSINOPHILS % (AUTO) 0.1 % (0.0-4.0); HEMATOCRIT 39.4 % (36-48); LYMPHOCYTES # (AUTO) 1.3 K/uL (2.5-16.5); LYMPHOCYTES % (AUTO) 19.5 % (20.5-51.1); MEAN CORPUSCULAR HEMOGLOBIN 31 pg (27-31); MEAN CORPUSCULAR HGB CONC 33 g/dL (33-37); MEAN CORPUSCULAR VOLUME 93.7 fL (80-94); MONOCYTES # (AUTO) 0.3 K/uL (0.8-1.0); NEUTROPHILS % (AUTO) 75.2 % (42.2-75.2); PLATELET COUNT (AUTO) 174 K/uL (140-450); RED BLOOD CELL COUNT(AUTO) 4.21 MIL/uL (4.20-5.40); RED CELL DISTRIBUTION WIDTH 15.7 % (11.6-13.7); WHITE BLOOD COUNT (AUTO) 6.7 K/uL (4.8-10.8)
[2022-12-06 12:42] LABS: ALBUMIN 2.5 g/dL (3.4-5.0); ANION GAP 14.4 (8-16); CALCIUM 8.3 mg/dL (8.5-10.1); CARBON DIOXIDE 20.5 mmol/L (21-32); CREATININE 0.7 mg/dL (0.6-1.3); POTASSIUM 3.9 mmol/L (3.5-5.1); TOTAL BILIRUBIN 0.1 mg/dL (0.0-1.0); TOTAL PROTEIN, SERUM 6.2 g/dL (6.4-8.2)
[2022-12-06 14:51] VITALS: BP 124/47; PULSE 100; RESP 16; TEMP 97.8; O2SAT 98
== END 2022-12-06 14:40 | disposition home or self-care (01) ==
LOC: MED 10:46
DX: S00.83XA Contusion of other part of head, initial encounter (principal); R60.0 Localized edema; E46 Unspecified protein-calorie malnutrition; E88.09 Other disorders of plasma-protein metabolism, not elsewhere classified; Z98.890 Other specified postprocedural states; Z79.899 Other long term (current) drug therapy; Z79.2 Long term (current) use of antibiotics; W18.39XA Other fall on same level, initial encounter; Y92.89 Other specified places as the place of occurrence of the external cause; Y93.89 Activity, other specified; Y99.8 Other external cause status
CPT/HCPCS: 36415; 70450; 80053; 81025; 85025; 93970; 99285; Q0092